=== PATIENT | male | born 1970 | race Caucasian/White ===

== ENCOUNTER 2018-07-22 10:33 | Emergency (ER) | payer SELFPAY ==
[~2018-07-22] VITALS: Ht 182.9 cm; Wt 65.9 kg
[2018-07-22 10:37] VITALS: Ht 182.9 cm; Wt 65.9 kg
[2018-07-22] MEDS ORDERED: OMEPRAZOLE20 M1 PO (11:49)
[2018-07-22] MEDS ORDERED: ZANAFLEX4 MG PO (11:49)
[2018-07-22] MEDS ORDERED: VOLTAREN75 MG PO (11:49)
[2018-07-22 12:07] VITALS: BP 120/84
== END 2018-07-22 12:05 | disposition home or self-care (01) ==
LOC: D.ER 10:33
DX: S46.812A Strain of other muscles, fascia and tendons at shoulder and upper arm level, left arm, initial encounter (principal); V49.9XXA Car occupant (driver) (passenger) injured in unspecified traffic accident, initial encounter; Y93.89 Activity, other specified; Y92.410 Unspecified street and highway as the place of occurrence of the external cause